=== PATIENT | male | born 1945 | race Caucasian/White ===

== ENCOUNTER 2022-01-03 04:11 | Day surgery (SDC) | payer OTHER, BC ==
[2022-01-02 09:04] VITALS: BMI 43.4
[2022-01-03] MEDS ORDERED: SUCCINYLCHOLINE CHLORIDE 200 MG/10 ML SYRINGE ONE (13:12)
[2022-01-03] MEDS ORDERED: PROPOFOL 20 ML ONE ×2 (13:12→13:27)
[2022-01-03] MEDS ORDERED: ceFAZolin SODIUM 1 GM VIAL ONE (13:15)
[2022-01-03] MEDS ORDERED: ceFAZolin SODIUM 1 GM VIAL IVPB ONE (13:15)
[2022-01-03] MEDS ORDERED: LIDOCAINE HCL/PF 2% SDV 5ML VIAL ONE (13:28)
[2022-01-03] MEDS ORDERED: ONDANSETRON 4 MG/2 ML VIAL IVPUSH PRN (15:44)
[2022-01-03] MEDS ORDERED: oxyCODONE HCL 5 MG TABLET PO PRN (15:44)
[2022-01-03] MEDS ORDERED: LACTATED RINGERS SOLUTION 1,000 ML IV SCH (15:45)
[2022-01-03 16:15] VITALS: TEMP 97.8
[2022-01-03 17:32] VITALS: BP 133/70; PULSE 61
== END 2022-01-03 17:10 | disposition home or self-care (01) ==
LOC: JASU-SURG 04:11
PROVIDERS: ATTEND Urology
PROC: 0T5B8ZZ Destruction of Bladder, Via Natural or Artificial Opening Endoscopic (ICD-10-PCS; principal; 2022-01-03 13:00)
DX: C67.9 Malignant neoplasm of bladder, unspecified (principal); E11.9 Type 2 diabetes mellitus without complications; Z79.84 Long term (current) use of oral hypoglycemic drugs
CPT/HCPCS: 82962; 88305-TC; 94760